=== PATIENT | male | born 1990 | race Two or more races ===

== ENCOUNTER 2024-03-17 21:43 | Emergency (ER) | payer OTHER ==
[~2024-03-17] VITALS: Ht 188 cm; Wt 150.0 kg
[2024-03-17] MEDS: KETOROLAC TROMETH 60MG/2ML VIAL IM ONE (23:14)
[2024-03-17 23:15] VITALS: BP 137/89; PULSE 86; RESP 20; TEMP 97.9; O2SAT 98
[2024-03-17] MEDS ORDERED: IBUP-1455 PO (23:40)
== END 2024-03-18 00:16 | disposition home or self-care (01) ==
LOC: ER 21:43
DX: S46.911A Strain of unspecified muscle, fascia and tendon at shoulder and upper arm level, right arm, initial encounter (principal); X58.XXXA Exposure to other specified factors, initial encounter; Y93.89 Activity, other specified; Y92.89 Other specified places as the place of occurrence of the external cause; Y99.8 Other external cause status
CPT/HCPCS: 73030; 96372; 99283; J1885